=== PATIENT | female | born 1960 | race Caucasian/White ===

== ENCOUNTER 2017-04-05 15:22 | Emergency (ER) | payer OTHER ==
[~2017-04-05] VITALS: Ht 165.1 cm; Wt 63.2 kg
[2017-04-05 16:47] LABS: HEMATOCRIT 40.7 % (36.0-46.0); MCH 29.4 PG (29.0-34.0); MCHC 33.2 G/DL (30.0-36.0); MCV 88.7 FL (83-99); MEAN PLAT.VOLUME 10.9 uM^3 (9.5-12.4); PLATELET COUNT 228 K/uL (156-360); RBC DIS.WIDTH-CV 14.4 % (11.8-14.6); RBC DIS.WIDTH-SD 46.7 % (39-53); RED BLOOD COUNT 4.59 M/uL (3.80-5.20); WHITE BLOOD COUNT 8.1 K/uL (4.1-10.2)
[2017-04-05 16:55] LABS: CHLORIDE 104 mEq/L (99-109); POTASSIUM 4.1 mEq/L (3.7-5.4); SODIUM 140 mEq/L (136-147)
[2017-04-05 16:58] LABS: GLUCOSE 96 mg/dL (70-99)
[2017-04-05 16:59] LABS: ANION GAP 10 MEQ/L (2-14)
[2017-04-05 17:00] LABS: TOTAL BILIRUBIN 0.6 mg/dL (0.0-1.0)
[2017-04-05 17:01] LABS: ALKALINE PHOSPHATASE 69 IU/L (3-129); GFR ESTIMATE (CALCULATED) > 59 mL/min/
[2017-04-05 17:02] LABS: UREA NITROGEN (BUN) 19 mg/dL (9-23)
[2017-04-05 17:20] LABS: ADD MIUA? NO; BILIRUBIN NEGATIVE; BLOOD NEGATIVE; COLOR YELLOW ((YELLOW)); GLUCOSE (STRIP) NEGATIVE; KETONES 5; LEUKOCYTES NEGATIVE; NITRITE NEGATIVE; PROTEIN (STRIP) NEGATIVE; SPECIFIC GRAVITY 1.014 (1.000-1.030); UCUL ADDED? NO; UROBILINOGEN 0.2 MG/DL (0.2-1.0)
[2017-04-05 19:25] VITALS: BP 162/100
== END 2017-04-05 19:26 | disposition home or self-care (01) ==
LOC: EME 15:22
PROVIDERS: Emergency Medicine
DX: S60.222A Contusion of left hand, initial encounter (principal); S80.12XA Contusion of left lower leg, initial encounter; M25.551 Pain in right hip; V49.50XA Passenger injured in collision with unspecified motor vehicles in traffic accident, initial encounter; F17.200 Nicotine dependence, unspecified, uncomplicated
CPT/HCPCS: 72170; 73130; 73590; 74177; 80053; 81003; 85027; 99281; 99284